=== PATIENT | male | born 1980 | race Caucasian/White ===

== ENCOUNTER 2020-01-16 14:36 | Emergency (ER) | payer OTHER, SELFPAY ==
[2020-01-16 14:40] VITALS: BP 139/91; PULSE 99; RESP 18; TEMP 37; O2SAT 91
--- NOTE | 2020-01-16 16:33 | DI.RAD.S_ITS ---
PROCEDURE: XR FOOT LT MIN 3V INDICATIONS: L foot swelling post fall TECHNIQUE: 3 views of the foot were acquired. COMPARISON: None. FINDINGS: Bones: Oblique fracture through the 2nd metatarsal. Mild displacement. No intra-articular extension. No dislocations. Ingris of the 1st and 2nd digits appear somewhat narrowed. No suspicious bony lesions. Soft tissues: No tibiotalar joint effusion. Achilles tendon appears normal. IMPRESSION: Oblique fracture through the 2nd metatarsal shaft with mild displacement. Dictated by: Kleber Villa M.D. on 01/16/2020 at 17:22 Approved by: Kleber Villa M.D. on 01/16/2020 at 17:24
--- NOTE | 2020-01-16 16:35 | ED.EXTPRO ---
HPI - Extremity Problem <CASSIUS Sosa - Last Filed: 01/16/20 21:25> General Chief complaint: Extremity Problem,Nontraumatic Stated complaint: left foot is swollen Time Seen by Provider: 01/16/20 16:11 Source: family Mode of arrival: Wheelchair Limitations: language barrier, altered mental status and physical limitation History of Present Illness HPI Narrative: 39-year-old male with a history of anoxic brain injury from , cardiomyopathy at , and seizures, presents emergency department with his mother for left foot swelling and pain. Mother reports approximately 2 days ago he fell when getting onto the toilet. Initially he was limping and she thought he was favoring his right foot. However yesterday was complaining of left foot pain, patient is non verbal but mother states he was making gestures. This morning she noticed some swelling to the distal aspect of the foot. Mother denies any other symptoms such as fevers, vomiting, appetite changes, diarrhea, unusual behavior, cough, or any other concerns. Related Data Home Medications Medication Instructions Recorded Confirmed sulfamethoxazole-trimethoprim 1 tab PO BID #0 03/17/12 Allergies Allergy/AdvReac Type Severity Reaction Status Date / Time No Known Drug Allergies Allergy Verified 01/16/20 14:42 Review of Systems <CASSIUS Sosa - Last Filed: 01/16/20 21:25> Review of Systems Narrative: REVIEW OF SYSTEMS: GENERAL: Denies fever. HENT: No head trauma. CARDIOVASCULAR: No syncope.. RESPIRATORY: No cough. GASTROINTESTINAL: No vomiting or diarrhea. GENITOURINARY: No urinary changes. MUSCULOSKELETAL: Reports left foot swelling see HPI. INTEGUMENTARY: No rash, lesions, or pruritus. NEURO: No abnormal behavior. PSYCH: No behavior or mood changes. Patient History <CASSIUS Sosa - Last Filed: 01/16/20 21:25> Medical History Anoxic brain injury (Acute) Social History Smoking Status: Never smoker Smoking Status: Never smoker Substance Use Type: does not use Exam <CASSIUS Sosa - Last Filed: 01/16/20 21:25> Initial Vital Signs Initial Vital Signs: Vital Signs Temperature 98.6 F 01/16/20 14:40 Pulse Rate 99 H 01/16/20 14:40 Respiratory Rate 18 01/16/20 14:40 Blood Pressure 139/91 H 01/16/20 14:40 Pulse Oximetry 91 01/16/20 14:40 PHYSICAL EXAMINATION: GENERAL: Alert, nonverbal. HENT: Normocephalic, atraumatic. EYES: Symmetrical, sclera white, no periorbital swelling. CARDIOVASCULAR: Regular rate. RESPIRATORY: Normal respiratory rate, trachea midline, airway patent. No stridor, nasal flaring or accessory muscle use. MUSCULOSKELETAL: Swelling noted to left mid foot, patient was drills to palpation of this area. Pedal pulse 2 +and intact bilaterally. Chronic finger in toe contractures noted. EXTREMITIES: CMS intact. Pedal pulses 2+ and equal bilaterally. SKIN: Warm, dry, soft, appropriate color for ethnicity. No lesions, rashes, or wounds. NEURO: Alert and Oriented X 3. No sensory deficits. PSYCH: Appropriate affect and mood. <Kalie Rubio MD - Last Filed: 02/03/20 18:09> Initial Vital Signs Initial Vital Signs: Vital Signs Temperature 98.6 F 01/16/20 14:40 Pulse Rate 99 H 01/16/20 14:40 Respiratory Rate 18 01/16/20 14:40 Blood Pressure 139/91 H 01/16/20 14:40 Pulse Oximetry 91 01/16/20 14:40 Course <CASSIUS Sosa - Last Filed: 01/16/20 21:25> Orders Ordered: ED Orders 01/16/20 16:33 XR foot LT min 3V Stat Consultations Consultation #1: Patient staffed with Dr. Rubio discussed images and splinting. Vital Signs Vital signs: Vital Signs - 8 hr 01/16/20 14:40 01/16/20 17:14 01/16/20 18:18 Temperature 98.6 F Pulse Rate 99 H 89 Pulse Rate [Left Dorsalis Pedis] 100 H Respiratory Rate 18 18 Blood Pressure 139/91 H 134/88 Pulse Oximetry 91 94 <Kalie Rubio MD - Last Filed: 02/03/20 18:09> Orders Ordered: ED Orders 01/16/20 16:33 XR foot LT min 3V Stat Vital Signs Vital signs: Vital Signs - 8 hr 01/16/20 14:40 01/16/20 17:14 01/16/20 18:18 Temperature 98.6 F Pulse Rate 99 H 89 Pulse Rate [Left Dorsalis Pedis] 100 H Respiratory Rate 18 18 Blood Pressure 139/91 H 134/88 Pulse Oximetry 91 94 MDM - Extremity (Nontraumatic) <CASSIUS Sosa - Last Filed: 01/16/20 21:25> Medical Records Attestation: I reviewed the patient's medical records. Lab Data Attestation: I reviewed the patient's lab results. Imaging Data Extremity x-ray #1: Radiologist's Impression: [address] [address] XRay Report Signed Patient: Nigel Killian BMR#: [id number] : 1980Acct:[id number] Age/Sex: 39 / MDate of Service: 01/16/20 Loc: ED Accession Number: [id number] Procedure: XR foot LT min 3V Ordering Provider: Beba Hinson PROCEDURE: XR FOOT LT MIN 3V INDICATIONS: L foot swelling post fall TECHNIQUE: 3 views of the foot were acquired. COMPARISON: None. FINDINGS: Bones: Oblique fracture through the 2nd metatarsal. Mild displacement. No intra-articular extension. No dislocations. Ingris of the 1st and 2nd digits appear somewhat narrowed. No suspicious bony lesions. Soft tissues: No tibiotalar joint effusion. Achilles tendon appears normal. IMPRESSION: Oblique fracture through the 2nd metatarsal shaft with mild displacement. Dictated by: Kleber Villa M.D. on 01/16/2020 at 17:22 Approved by: Kleber Villa M.D. on 01/16/2020 at 17:24 [facility] Narrative Medical decision making narrative: 39-year-old male who is nonverbal due to an anoxic brain injury at , presents emergency department with his mother for left foot swelling noted this morning. X-ray shows 2nd metatarsal fracture, boot was applied due to difficulty of ortho shoe as patient is nonverbal and often does not understand directions. The boot is less likely to come off at this point. Mother was encouraged to keep the patient nonweightbearing until follow-up. Patient was referred to an ortho. CMS intact. Return precautions given for new or worsening symptoms. Patient's mother agreed to plan of care verbalized understanding. Discharge Plan Departure Patient Disposition: Home Clinical Impression: Closed fracture of second metatarsal bone Discharge Date/Time: 01/16/20 18:18 Instructions: DI for Foot Fracture Activity Restrictions/Additional Instructions: Thank you for entrusting me with your care today. As discussed, you have a foot fracture. Please keep this boot in place as much as possible, refrain from putting weight on this foot. Please call the Orthopedics office listed below to schedule a follow-up appointment in the next 1-2 weeks. Return emergency department for any new or worsening symptoms such as fevers, unusual behavior, uncontrollable vomiting, severe pain, or any other concerns. Prescriptions: No Action sulfamethoxazole-trimethoprim 800 MG/160 MG tablet 1 tab PO BID Qty: 0 RF: 0 Referrals: Laurence Swanson PA-C [[facility] Counselor] - <Kalie Rubio MD - Last Filed: 02/03/20 18:09> Cosign ED Attending Cosignature Attestation: I was immediately available in the department for consultation throughout this patient's visit. I agree with documentation as above. Kalie Rubio MD
[2020-01-16 17:14] VITALS: PULSE 100
[2020-01-16 18:18] VITALS: BP 134/88; PULSE 89; RESP 18; O2SAT 94
== END 2020-01-16 18:18 | disposition home or self-care (01) ==
PROVIDERS: Emergency Provider Nurse Practitioner
DX: S92.322A Displaced fracture of second metatarsal bone, left foot, initial encounter for closed fracture (principal); W19.XXXA Unspecified fall, initial encounter
CPT/HCPCS: 29505; 73630; 99283

== ENCOUNTER → 2023-09-12 13:58 | Outpatient (CLI) | payer OTHER, SELFPAY ==
--- NOTE | 2023-09-12 14:02 | DI.RAD.S_ITS ---
PROCEDURE: XR ANKLE RT MIN 3V INDICATIONS: concerns for arthritis TECHNIQUE: 3 views of the ankle were acquired. COMPARISON: None. FINDINGS: Bones: No fractures or dislocations. Ankle mortise is normally aligned. No suspicious bony lesions. Soft tissues: No tibiotalar joint effusion. Achilles tendon appears normal. IMPRESSION: No acute bony abnormality or significant effusion. No significant degenerative changes. Approved by: Radha Carter M.D. on 09/14/2023 at 0:12
--- NOTE | 2023-09-12 14:02 | DI.RAD.S_ITS ---
PROCEDURE: XR FOOT LT MIN 3V INDICATIONS: concerns for arthritis TECHNIQUE: 3 views of the foot were acquired. COMPARISON: [facility], , XR FOOT LT MIN 3V, 01/16/2020, 16:41. FINDINGS: Bones: No fractures or dislocations. No suspicious bony lesions. Similar narrowing of the mayito of the distal 1st and 2nd phalanx Soft tissues: No tibiotalar joint effusion. Achilles tendon appears normal. IMPRESSION: No acute bony abnormality. No significant degenerative changes. Approved by: Radha Carter M.D. on 09/14/2023 at 0:13
--- NOTE | 2023-09-12 14:02 | DI.RAD.S_ITS ---
PROCEDURE: XR ANKLE LT MIN 3V INDICATIONS: concerns for arthritis TECHNIQUE: 3 views of the ankle were acquired. COMPARISON: None. FINDINGS: Bones: No fractures or dislocations. Ankle mortise is normally aligned. No suspicious bony lesions. Soft tissues: No tibiotalar joint effusion. Achilles tendon appears normal. IMPRESSION: No acute bony abnormality or significant effusion. No significant degenerative changes. Approved by: Radha Carter M.D. on 09/13/2023 at 23:49
--- NOTE | 2023-09-12 14:02 | DI.RAD.S_ITS ---
PROCEDURE: XR FOOT RT MIN 3V INDICATIONS: concerns for arthritis TECHNIQUE: 3 views of the foot were acquired. COMPARISON: [facility], CR, XR FOOT LT MIN 3V, 01/16/2020, 16:41. FINDINGS: Bones: No fractures or dislocations. No suspicious bony lesions. Narrowed mayito of the 1st and 2nd proximal phalanx, possibly congenital given similar appearance on contralateral left foot. Soft tissues: No tibiotalar joint effusion. Achilles tendon appears normal. IMPRESSION: No acute bony abnormality. No significant degenerative changes. Approved by: Radha Carter M.D. on 09/13/2023 at 23:51
--- NOTE | 2023-09-12 14:02 | DI.RAD.S_ITS ---
PROCEDURE: XR KNEE LT 3V INDICATIONS: lt knee pain TECHNIQUE: 3 views of the knee were acquired. COMPARISON: None. FINDINGS: Bones: No fractures or dislocations. No suspicious bony lesions. No significant degenerative changes. Soft tissues: No joint effusion. No suspicious soft tissue calcifications. IMPRESSION: No acute bony abnormality or significant effusion. No significant degenerative changes. Approved by: Radha Carter M.D. on 09/13/2023 at 23:48
--- NOTE | 2023-09-12 14:02 | DI.RAD.S_ITS ---
PROCEDURE: XR LUMBAR SPINE 2-3V INDICATIONS: back pain TECHNIQUE: 3 views of the lumbar spine were acquired. COMPARISON: None. FINDINGS: Bones: 5 [id number] vertebrae are present. There is normal bony alignment. No vertebral body compression fractures. No suspicious bony lesions. Soft tissues: Overlying bowel gas pattern is normal. No suspicious soft tissue calcifications. IMPRESSION: No acute bony abnormality. If symptoms persist with conservative management, consider cross-sectional imaging such as CT or MRI. Approved by: Radha Carter M.D. on 09/13/2023 at 23:53
--- NOTE | 2023-09-12 14:02 | DI.RAD.S_ITS ---
PROCEDURE: XR HIP W PEL IF DONE KASH MIN 4V INDICATIONS: screen for dysplasia TECHNIQUE: AP pelvis with lateral view(s) of the bilateral hip(s). COMPARISON: None. FINDINGS: Bones: No fractures or dislocations. Pelvic ring appears intact. No suspicious bony lesions. No definite radiographic evidence of dysplasia. Soft tissues: The visualized bowel gas pattern is normal. No suspicious soft tissue calcifications. IMPRESSION: No acute bony abnormality. No definite radiographic evidence of dysplasia. Approved by: Radha Carter M.D. on 09/14/2023 at 0:11
--- NOTE | 2023-09-12 14:02 | DI.RAD.S_ITS ---
PROCEDURE: XR KNEE RT 3V INDICATIONS: rt knee pain TECHNIQUE: 3 views of the knee were acquired. COMPARISON: None. FINDINGS: Bones: No fractures or dislocations. No suspicious bony lesions. Soft tissues: No joint effusion. No suspicious soft tissue calcifications. IMPRESSION: No acute bony abnormality or significant effusion. No significant degenerative changes. Approved by: Radha Carter M.D. on 09/13/2023 at 23:52
== END ==
PROVIDERS: PCP Family Medicine; Referring Provider Family Medicine; Visit Provider Family Medicine
DX: M25.562 Pain in left knee (principal); M25.561 Pain in right knee; M54.9 Dorsalgia, unspecified; G80.9 Cerebral palsy, unspecified
CPT/HCPCS: 72100; 73522; 73562; 73610; 73630